=== PATIENT | female | born 1995 | race Caucasian/White ===

== ENCOUNTER 2017-02-11 23:00 | Emergency (ER) | payer OTHER ==
[2017-02-11 23:18] VITALS: BP 130/74; PULSE 99; TEMP 98.4; BMI 23.0
--- NOTE | 2017-02-11 23:33 | PDOC ---
History of Present Illness - General Chief Complaint: Respiratory Stated Complaint: COLD SYMPTOMS Time Seen by Provider: 02/11/17 23:24 History Source: Patient - History of Present Illness Initial Comments: 02/11/17 23:51 21-year-old female with no medical history presents to the emergency department complaining of nasal congestion, rhinorrhea without headache, dizziness, lightheadedness, facial pains, sore throat, difficulty swallowing, cough, chest pain, shortness of breath, neck pain/stiffness, back pains, abdominal pains, flank pains, urinary symptoms, ext numbness or tingling sensation. Patient states she's had these symptoms for the past 2 days and was informed by numerous friends and family members that she might have influenza. Past History - Past Medical History Allergies/Adverse Reactions: Allergies Allergy/AdvReac Type Severity Reaction Status Date / Time No Known Drug Allergies Allergy Verified 02/11/17 23:17 Home Medications: Ambulatory Orders NK [No Known Home Medication] 02/11/17 Asthma: No Cancer: No Cardiac Disorders: No COPD: No Diabetes: No HTN: No Seizures: No Thyroid Disease: No - Suicide/Smoking/Psychosocial Hx Smoking History: Never smoked Have you smoked in the past 12 months: No Hx Alcohol Use: No Drug/Substance Use Hx: No Hx Substance Use Treatment: No Review of Systems - Review of Systems Able to Perform ROS?: Yes Comments:: 02/11/17 23:52 CONSTITUTIONAL: Absent: fever, chills, diaphoresis, generalized weakness, malaise, loss of appetite HEENT: +rhinorrhea, nasal congestion Absent: throat pain, throat swelling, difficulty swallowing, mouth swelling, ear pain, eye pain, visual Changes CARDIOVASCULAR: Absent: chest pain, loss of consciousness, palpitations, irregular heart rate, peripheral edema RESPIRATORY: Absent: cough, shortness of breath, dyspnea with exertion, orthopnea, wheezing, stridor, hemoptysis GASTROINTESTINAL: Absent: abdominal pain, abdominal distension, nausea, vomiting, diarrhea, constipation, melena, hematochezia GENITOURINARY: Absent: dysuria, frequency, urgency, hesitancy, hematuria, flank pain, genital pain MUSCULOSKELETAL: Absent: myalgia, arthralgia, joint swelling SKIN: Absent: rash, itching, pallor HEMATOLOGIC/IMMUNOLOGIC: Absent: easy bleeding, easy bruising, lymphadenopathy, frequent infections ENDOCRINE: Absent: unexplained weight gain, unexplained weight loss, heat intolerance, cold intolerance NEUROLOGIC: Absent: headache, focal weakness or paresthesias, dizziness, unsteady gait, seizure, mental status changes, bladder or bowel incontinence PSYCHIATRIC: Absent: anxiety, depression, suicidal or homicidal ideation, hallucinations. Is the patient limited Divehi proficient: No *Physical Exam - Vital Signs Last Vital Signs Temp Pulse Resp BP Pulse Ox 98.4 F 99 H 18 130/74 99 02/11/17 23:15 02/11/17 23:15 02/11/17 23:15 02/11/17 23:15 02/11/17 23:15 - Physical Exam Comments: 02/11/17 23:52 GENERAL: Well developed, well nourished. Awake and alert. No acute distress. HEENT: Normocephalic, atraumatic. PERRLA, EOMI. No conjunctival pallor. Sclera are non- icteric. Moist mucous membranes. Oropharynx is clear. NECK: Supple. Full ROM. No JVD. Carotid pulses 2+ and symmetric, without bruits. No thyromegaly. No lymphadenopathy. CARDIOVASCULAR: Regular rate and rhythm. No murmurs, rubs, or gallops. Distal pulses are 2+ and symmetric. PULMONARY: No evidence of respiratory distress. Lungs clear to auscultation bilaterally. No wheezing, rales or rhonchi. ABDOMINAL: Soft. Non-tender. Non-distended. No rebound or guarding. No organomegaly. Normoactive bowel sounds. MUSCULOSKELETAL Normal range of motion at all joints. No bony deformities or tenderness. No CVA tenderness. EXTREMITIES: No cyanosis. No clubbing. No edema. No calf tenderness. SKIN: Warm and dry. Normal capillary refill. No rashes. No jaundice. NEUROLOGICAL: Alert, awake, appropriate. Cranial nerves 2-12 intact. No deficits to light touch and temperature in face, upper extremities and lower extremities. No motor deficits in the in face, upper extremities and lower extremities. Normoreflexic in the upper and lower extremities. Normal speech. Toes are down- going bilaterally. Gait is normal without ataxia. PSYCHIATRIC: Cooperative. Good eye contact. Appropriate mood and affect. *DC/Admit/Observation/Transfer Diagnosis at time of Disposition: Viral syndrome - Discharge Dispostion Condition at time of disposition: Stable Admit: No - Referrals - Patient Instructions Printed Discharge Instructions: DI for Viral Syndrome Additional Instructions: Increase fluids Tylenol or Motrin every 6hours as needed for pain/fever Follow up with your physician within 48 hours Return to the ER for severe/persistent/worsening symptoms - Post Discharge Activity
== END 2017-02-12 00:25 | disposition home or self-care (01) ==
LOC: JERFT 23:00
DX: B34.9 Viral infection, unspecified (principal)
CPT/HCPCS: 87804; 99281-25

== ENCOUNTER 2019-05-04 18:06 | Emergency (ER) | payer OTHER ==
[2019-05-04] MEDS ORDERED: IBUPROFEN 600 MG TABLET (FP) PO ONE ×2 (18:32→19:07)
--- NOTE | 2019-05-04 18:32 | PDOC ---
Rapid Medical Evaluation Chief Complaint: Cold Symptoms Time Seen by Provider: 05/04/19 18:30 Medical Evaluation: Allergies Allergy/AdvReac Type Severity Reaction Status Date / Time No Known Drug Allergies Allergy Verified 05/04/19 18:29 05/04/19 18:30 This patient had a brief medical evaluation in triage cc: headache since Saturday HPI: Patient reports fever cough and headache since Saturday Complaining of chills in triage PE: alert and oriented unlabored breathing skin warm to touch Orders: urine hcg This patient will proceed to main ed for further evaluation Discharge Disposition - Diagnosis Flu-like symptoms - Referrals - Patient Instructions - Post Discharge Activity
[2019-05-04 18:40] VITALS: BP 132/89; BMI 25.7
--- NOTE | 2019-05-04 19:21 | PDOC ---
History of Present Illness - General Chief Complaint: Cold Symptoms Stated Complaint: COLD SYMPTOMS Time Seen by Provider: 05/04/19 18:30 History Source: Patient Exam Limitations: No Limitations - History of Present Illness Initial Comments: 05/04/19 19:18 23 female denies past medical history complaining of frontal headache, cough, sore throat, body aches and fever x2 days. Denies nausea, vomiting, diarrhea, chest pain, shortness of breath, abdominal pain, sick contacts or recent travel. ROS: as above PE: GENERAL: well-appearing, NAD HEAD: NCAT EYES: Pupils equal, round and reactive to light, sclera anicteric, conjunctiva clear ENT: Normal bilateral ear canals, normal bilateral TMs, pharynx: Mild erythema, no exudate, uvula midline NECK: supple, lymphadenopathy CHEST: nontender RESP: clear, no w/r/r CARDIO: rrr, no m/g/r ABD: +BS, soft, nontender, non distended BACK: no midline spinal ttp, no CVAT EXTREMITIES: Normal range of motion, no edema NEUROLOGICAL: Normal speech, normal gait SKIN: Warm, Dry Is this a multiple visit Asthma Patient?: No Past History - Past Medical History Allergies/Adverse Reactions: Allergies Allergy/AdvReac Type Severity Reaction Status Date / Time No Known Drug Allergies Allergy Verified 05/04/19 18:29 Home Medications: Ambulatory Orders NK [No Known Home Medication] 02/11/17 Asthma: No Cancer: No Cardiac Disorders: No COPD: No Diabetes: No HTN: No Seizures: No Thyroid Disease: No - Psycho Social/Smoking Cessation Hx Smoking History: Never smoked Have you smoked in the past 12 months: No Information on smoking cessation initiated: No Hx Alcohol Use: No Drug/Substance Use Hx: No Hx Substance Use Treatment: No *Physical Exam - Vital Signs Last Vital Signs Temp Pulse Resp BP Pulse Ox 102.3 F H 137 H 18 132/89 100 05/04/19 18:30 05/04/19 18:30 05/04/19 18:30 05/04/19 18:30 05/04/19 18:30 ED Treatment Course - Medications Given in the ED: ED Medications Discontinued Medications Generic Name Dose Route Start Last Admin Trade Name Freq PRN Reason Stop Dose Admin Ibuprofen 600 mg 05/04/19 18:32 05/04/19 19:10 Motrin - PO 05/04/19 18:33 600 mg ONCE ONE Administration Medical Decision Making - Medical Decision Making 05/04/19 19:20 23-year-old female denies past medical history presents complaining of frontal headache, cough, fever, sore throat, body aches x48 hours. Urine flu swab Rapid strep P.o. ibuprofen Reassess 05/04/19 19:44 Awaiting flu and rapid strep results Recheck temperature Signed out to HOLA Perez Discharge - Discharge Information Problems reviewed: Yes Clinical Impression/Diagnosis: Flu-like symptoms Condition: Stable - Admission No - Follow up/Referral Referrals: Randa Payne MD [Primary Care Provider] - - Patient Discharge Instructions - Post Discharge Activity
[2019-05-04] MEDS ORDERED: DEXAMETHASONE LIQUID 0.5 MG/5 ML PO ONE (20:15)
[2019-05-04] MEDS ORDERED: PENICILLIN G BENZATHINE 1,200,000 UNIT/2 ML PFS IM ONE ×2 (20:15→20:17)
[2019-05-04] MEDS ORDERED: DEXAMETHASONE SOD PHOSPHATE 10 MG/1 ML VIAL ONE (20:16)
--- NOTE | 2019-05-04 20:17 | PDOC ---
*Physical Exam - Vital Signs Last Vital Signs Temp Pulse Resp BP Pulse Ox 102.3 F H 137 H 18 132/89 100 05/04/19 18:30 05/04/19 18:30 05/04/19 18:30 05/04/19 18:30 05/04/19 18:30 - Physical Exam 05/04/19 20:15 No gross sensorimotor deficits ED Treatment Course - Medications Given in the ED: ED Medications Discontinued Medications Generic Name Dose Route Start Last Admin Trade Name Cuong PRN Reason Stop Dose Admin Ibuprofen 600 mg 05/04/19 18:32 05/04/19 19:10 Motrin - PO 05/04/19 18:33 600 mg ONCE ONE Administration Medical Decision Making - Medical Decision Making 05/04/19 20:16 Strep positive did Bicillin and Decadron I have reviewed the pathophysiology with the patient. They are in agreement with the treatment plan all questions were answered to their satisfaction. Understanding for follow-up without fail was also conveyed to the patient. Again they are in agreement. Discharge - Discharge Information Problems reviewed: Yes Clinical Impression/Diagnosis: Strep pharyngitis Clinical Impression/Diagnosis: (Ruled Out): Flu-like symptoms Condition: Stable Disposition: HOME - Admission No - Follow up/Referral Referrals: Randa Payne MD [Primary Care Provider] - - Patient Discharge Instructions Additional Instructions: You were given a one-time injection today of penicillin which will treat strep throat. You were given also a long-acting steroid. You should not require any anti-inflammatories from this point forward you may take Tylenol for pain and perform warm salt water gargles 5-6 times a day. Return to the emergency room for worsening symptoms and without fail follow-up with your primary care physician in 1 to 2 days for further evaluation and treatment options. - Post Discharge Activity Work/Back to School Note: Back to Work
[2019-05-04 20:24] VITALS: PULSE 100; TEMP 101.2
== END 2019-05-04 20:47 | disposition home or self-care (01) ==
LOC: JERFT 18:06 → JER 18:06 → JERFT 20:47
DX: J02.0 Streptococcal pharyngitis (principal); B95.0 Streptococcus, group A, as the cause of diseases classified elsewhere
CPT/HCPCS: 87804; 87880; 96372; 99284-25

== ENCOUNTER 2019-08-27 15:48 | Emergency (ER) | payer OTHER ==
[2019-08-27 15:52] VITALS: BP 111/66; PULSE 106; TEMP 96.6; BMI 26.5
--- NOTE | 2019-08-27 15:52 | PDOC ---
Rapid Medical Evaluation Time Seen by Provider: 08/27/19 15:49 Medical Evaluation: Allergies Allergy/AdvReac Type Severity Reaction Status Date / Time No Known Drug Allergies Allergy Verified 05/04/19 18:29 08/27/19 15:50 I performed a brief in-person evaluation of this patient. Pt is a 23 y/o female with R ear pain for the last 2 days. She denies any fevers or drainage. She took Advil for the pain which helped a little bit. She denies any other complaints. She denies any past medical history or allergies to medications. Pertinent physical exam findings: speaking in full sentences, no drainage noted from R ear I have ordered the following: none Patient to proceed to ED for further evaluation. Discharge Disposition - Diagnosis Right ear pain - Referrals - Patient Instructions - Post Discharge Activity
[2019-08-27] MEDS ORDERED: KETOROLAC TROMETHAMINE 30 MG/1 ML VIAL IM ONE (16:59)
[2019-08-27] MEDS ORDERED: KETOROLAC TROMETHAMINE 30 MG/1 ML VIAL ONE (17:00)
--- NOTE | 2019-08-27 17:05 | PDOC ---
History of Present Illness - General Chief Complaint: Ear Problem Stated Complaint: RT EAR PAIN Time Seen by Provider: 08/27/19 15:49 History Source: Patient Exam Limitations: Clinical Condition - History of Present Illness Initial Comments: 08/27/19 17:01 Patient with no significant past medical history present with complaint of 2 days history of right ear pain with increased pain with chewing to right ear. Patient reported taking Aleve this morning with minimal improvement. Denies fever, chills, dizziness, blurry vision. Denies any other symptoms. Is this a multiple visit Asthma Patient?: No Past History - Medical History Allergies/Adverse Reactions: Allergies Allergy/AdvReac Type Severity Reaction Status Date / Time No Known Drug Allergies Allergy Verified 08/27/19 15:52 Home Medications: Ambulatory Orders Naproxen 500 mg PO BID PRN #20 tablet 08/27/19 Asthma: No Cancer: No Cardiac Disorders: No COPD: No Diabetes: No HTN: No Seizures: No Thyroid Disease: No - Psycho-Social/Smoking History Smoking History: Never smoked Have you smoked in the past 12 months: No - Substance Abuse Hx (Audit-C & DAST Scrn) How often the patient has a drink containing alcohol: Never Score: In Men: 4 or > Positive; In Women: 3 or > Positive: 0 Screen Result (Pos requires Nsg. Audit-10AR): Negative Review of Systems - Review of Systems Able to Perform ROS?: Yes Is the patient limited Mosotho proficient: No Constitutional: No: Chills, Fever, Malaise HEENTM: Yes: Symptoms Reported, See HPI, Ear Pain (Right ear pain). No: Eye Pain, Blurred Vision, Tearing, Recent change in vision, Double Vision, Cataracts, Ocular Prothesis, Ear Discharge, Nose Pain, Nose Congestion, Tinnitus, Nose Bleeding, Hearing Loss, Throat Pain, Throat Swelling, Mouth Pain, Dental Problems, Difficulty Swallowing, Mouth Swelling, Other Respiratory: No: Symptoms reported, See HPI, Cough, Orthopnea, Shortness of Breath, SOB with Exertion, SOB at Rest, Stridor, Wheezing, Productive cough, Hemoptysis, Other Cardiac (ROS): No: Symptoms Reported ABD/GI: No: Symptoms Reported : No: Symptoms Reported Musculoskeletal: No: Symptoms Reported Integumentary: No: Symptoms Reported Neurological: No: Numbness, Weakness, Dizziness All Other Systems: Reviewed and Negative *Physical Exam - Vital Signs Last Vital Signs Temp Pulse Resp BP Pulse Ox 96.6 F L 106 H 18 111/66 99 08/27/19 15:50 08/27/19 15:50 08/27/19 15:50 08/27/19 15:50 08/27/19 15:50 - Physical Exam 08/27/19 17:06 GENERAL: Well developed, well nourished. Awake and alert. No acute distress. HEENT: Moderate tenderness to right TMJ with increased tenderness over TMJ with occlusion of mouth against resistance. Tympanic membrane normal bilateral. No erythema to ear canals bilateral. Normocephalic, atraumatic. PERRLA, EOMI. No conjunctival pallor. Sclera are non-icteric. Moist mucous membranes. Oropharynx is clear. NECK: Supple. Full ROM. CARDIOVASCULAR: Regular rate and rhythm. No murmurs, rubs, or gallops. Distal pulses are 2+ and symmetric. PULMONARY: No evidence of respiratory distress. Lungs clear to auscultation bilaterally. No wheezing, rales or rhonchi. MUSCULOSKELETAL Normal range of motion at all joints. SKIN: Warm and dry. Normal capillary refill. No rashes. No jaundice. NEUROLOGICAL: Alert, awake, appropriate. Gait is normal without ataxia. PSYCHIATRIC: Cooperative. Good eye contact. Appropriate mood General Appearance: Yes: Nourished, Appropriately Dressed. No: Apparent Distress Medical Decision Making - Medical Decision Making 08/27/19 17:03 Patient with no significant past medical history present with complaint of 2 days history of right ear pain with increased pain with chewing to right ear. Patient reported taking Aleve this morning with minimal improvement. Denies fever, chills, dizziness, blurry vision. Denies any other symptoms. Exam significant for moderate tenderness to right TMJ which increased pain with occlusion of mild against resistance. Normal ear exam. Tympanic membrane normal bilateral. Patient afebrile. Patient symptoms likely right TMJ arthralgia. Patient given Toradol 30 mg IM for pain. Patient stable for discharge on naproxen twice daily PRN for pain with advised to do hot compresses to TMJ area with oral surgery follow-up Discharge - Discharge Information Problems reviewed: Yes Clinical Impression/Diagnosis: Right ear pain, Right temporomandibular joint disorder, unspecified Condition: Stable Disposition: HOME - Admission No - Additional Discharge Information Prescriptions: Naproxen 500 mg PO BID PRN #20 tablet PRN Reason: jaw pain - Follow up/Referral Referrals: Lucio Kelly MD [Non Staff, Medical] - Noel Jin [Non Staff, Medical] - - Patient Discharge Instructions Patient Printed Discharge Instructions: DI for Temporomandibular Disorder Additional Instructions: Your ear pain is likely from pain from your jaw which is called TMJ which is an inflammation of the joints of your jawline. Take prescribed medication as prescribed for pain. Apply hot compresses to jaw area as needed for pain. Follow-up referred oral surgeon as needed if symptoms persist for more than 5 days - Post Discharge Activity
== END 2019-08-27 17:20 | disposition home or self-care (01) ==
LOC: JERFT 15:48
PROC: 3E023GC Introduction of Other Therapeutic Substance into Muscle, Percutaneous Approach (ICD-10-PCS; principal; 2019-08-27)
DX: M26.601 Right temporomandibular joint disorder, unspecified (principal); H92.01 Otalgia, right ear
CPT/HCPCS: 99284-25

== ENCOUNTER 2019-11-20 15:17 | Emergency (ER) | payer OTHER ==
[2019-11-20 15:40] VITALS: BP 124/67; PULSE 109; TEMP 98.5; BMI 24.2
--- NOTE | 2019-11-20 16:12 | PDOC ---
History of Present Illness - General Chief Complaint: Cold Symptoms Stated Complaint: HEADACHE/COLD SYMPTOMS Time Seen by Provider: 11/20/19 15:43 History Source: Patient - History of Present Illness Timing/Duration: reports: 1 week Past History - Medical History Allergies/Adverse Reactions: Allergies Allergy/AdvReac Type Severity Reaction Status Date / Time No Known Drug Allergies Allergy Verified 11/20/19 15:35 Home Medications: Ambulatory Orders Naproxen 500 mg PO BID PRN #20 tablet 08/27/19 Acetaminophen [Tylenol -] 500 mg PO Q6H #30 tablet 11/20/19 Asthma: No Cancer: No Cardiac Disorders: No COPD: No Diabetes: No HTN: No Seizures: No Thyroid Disease: No - Reproductive History Is Patient Now?: No - Psycho-Social/Smoking History Smoking History: Never smoked Have you smoked in the past 12 months: No Information on smoking cessation initiated: No - Substance Abuse Hx (Audit-C & DAST Scrn) How often the patient has a drink containing alcohol: Never Score: In Men: 4 or > Positive; In Women: 3 or > Positive: 0 Screen Result (Pos requires Nsg. Audit-10AR): Negative In the last yr the pt used illegal drug/Rx for NonMed reason: No Score: Yes response is considered Positive: 0 Screen Result (Positive result requires Nsg. DAST-10): Negative Review of Systems - Review of Systems Constitutional: No: Chills, Fever, Unintentional Wgt. Loss HEENTM: No: Blurred Vision ABD/GI: No: Nausea, Vomiting Neurological: Yes: Headache. No: Numbness, Tingling, Weakness, Dizziness *Physical Exam - Vital Signs Last Vital Signs Temp Pulse Resp BP Pulse Ox 98.5 F 109 H 15 124/67 100 11/20/19 15:35 11/20/19 15:35 11/20/19 15:35 11/20/19 15:35 11/20/19 15:35 - Physical Exam General Appearance: Yes: Appropriately Dressed. No: Apparent Distress HEENT: positive: Normal Voice Neck: positive: Supple Respiratory/Chest: negative: Respiratory Distress Integumentary: positive: Dry, Warm Neurologic: positive: head waiter/waitress II-XII NML intact, Fully Oriented, Alert, Normal Mood/Affect, Motor Strength 5/5 Medical Decision Making - Medical Decision Making 11/20/19 16:04 24 yo F, implanon in place, endorses h/o chronic headaches, presents with her usual headache x1 week on and off. Headache located to bi-congregation region, achy, 6 out of 10 with no worsening factors. Taking [id number] NSAIDs with some relief. No dizziness, blurred vision, nausea or vomiting. Has never seek medical evaluation for same in the past and unclear as to why patient presented today. see exam Acute on chronic AN Since improved w/ advil AN currently 04/13 in ED No red flags at this time Dc w/ neuro f/u for further eval Discharge - Discharge Information Problems reviewed: Yes Clinical Impression/Diagnosis: Headache Qualifiers: Headache type: unspecified Headache chronicity pattern: acute headache Intracta bility: not intractable Qualified Code(s): R51 - Headache Condition: Good Disposition: HOME - Additional Discharge Information Prescriptions: Acetaminophen [Tylenol -] 500 mg PO Q6H #30 tablet - Follow up/Referral Referrals: Vishnu Lee MD [Staff Physician] - - Patient Discharge Instructions Patient Printed Discharge Instructions: DI for Headache Additional Instructions: Take tylenol for pain as directed Follow up with Dr Lee or neurology for further evaluation of your headaches - Post Discharge Activity
== END 2019-11-20 16:13 | disposition home or self-care (01) ==
LOC: JER 15:17
DX: R51 Headache (principal)
CPT/HCPCS: 99283-25

== ENCOUNTER 2020-02-04 08:39 | Emergency (ER) | payer OTHER ==
[2020-02-04 08:58] VITALS: BP 114/79; PULSE 103; TEMP 97.8; BMI 24.2
[2020-02-04] MEDS ORDERED: FAMOTIDINE 20 MG/50 ML IVPB 20 MG/50 ML MG IVPB ONE ×2 (09:13→09:23)
[2020-02-04] MEDS ORDERED: ACETAMINOPHEN 1000 MG/100 ML VIAL (NON FORMULARY) IVPB ONE (09:13)
[2020-02-04] MEDS ORDERED: METOCLOPRAMIDE HCL INJECTION 10 MG/2 ML VIAL IVPB ONE (09:13)
[2020-02-04] MEDS ORDERED: SODIUM CHLORIDE 1,000 ML IV STA (09:13)
[2020-02-04] MEDS ORDERED: METOCLOPRAMIDE HCL INJECTION 10 MG/2 ML VIAL ONE (09:22)
[2020-02-04] MEDS ORDERED: ACETAMINOPHEN INJECTION 100 ML IVPB ONE (09:22)
[2020-02-04 10:11] LABS: BASO % 0.9 % (0-2.0); HEMATOCRIT 37.8 % (32.4-45.2); HEMOGLOBIN 12.4 GM/dL (10.7-15.3); LYMPH % 23.7 % (8-40); MCH 25.8 pg (25.7-33.7); MCHC 32.7 g/dl (32.0-36.0); MEAN CELL VOLUME 78.9 fl (80-96); MEAN PLT VOLUME 9.1 fl (7.5-11.1); MONO % 6.4 % (3.8-10.2); PLATELET COUNT 263 K/MM3 (134-434); RBC 4.79 M/mm3 (3.60-5.2); RDW 14.7 % (11.6-15.6); WHITE BLOOD COUNT 6.7 K/mm3 (4.0-10.0)
[2020-02-04 10:14] LABS: HCG,QUALITATIVE URINE Negative
[2020-02-04 10:22] LABS: EPI CELLS 7 /uL (0-25.1); HYALINE CASTS 0 /uL (0-3.1); URINE APPEARANCE CLOUDY; URINE BACTERIA 120 /uL (0-1359); URINE BILIRUBIN NEGATIVE (NEGATIVE); URINE COLOR YELLOW; URINE GLUCOSE (UA) NEGATIVE (NEGATIVE); URINE KETONE NEGATIVE (NEGATIVE); URINE LEUK ESTERASE NEGATIVE (NEGATIVE); URINE NITRITE NEGATIVE (NEGATIVE); URINE PROTEIN NEGATIVE (NEGATIVE); URINE RBC 14 /uL (0-23.9); URINE WBC 3 /uL (0-25.8)
[2020-02-04 10:35] LABS: ALBUMIN 3.7 g/dl (3.4-5.0)
[2020-02-04 10:38] LABS: CREATININE 0.6 mg/dL (0.55-1.3)
[2020-02-04 10:39] LABS: BILIRUBIN,TOTAL 0.4 mg/dL (0.2-1); TOT PROT 7.7 g/dl (6.4-8.2)
== END 2020-02-04 11:26 | disposition home or self-care (01) ==
LOC: JER 08:39
PROC: 3E0333Z Introduction of Anti-inflammatory into Peripheral Vein, Percutaneous Approach (ICD-10-PCS; principal; 2020-02-04)
PROC: 3E033GC Introduction of Other Therapeutic Substance into Peripheral Vein, Percutaneous Approach (ICD-10-PCS; 2020-02-04)
PROC: 3E033GC Introduction of Other Therapeutic Substance into Peripheral Vein, Percutaneous Approach (ICD-10-PCS; 2020-02-04)
PROC: 3E0337Z Introduction of Electrolytic and Water Balance Substance into Peripheral Vein, Percutaneous Approach (ICD-10-PCS; 2020-02-04)
DX: R10.31 Right lower quadrant pain (principal)
CPT/HCPCS: 36415; 76705-TC; 80053; 81003; 83690; 84703; 85025; 87086; 99284-25; J0131

== ENCOUNTER 2021-02-27 13:20 | Emergency (ER) | payer OTHER ==
[2021-02-27 13:32] VITALS: BP 105/69; PULSE 103; TEMP 98.6; BMI 25.7
[2021-02-28 14:07] LABS: SARS-CoV-2 NAA Detected (Not Detected)
== END 2021-02-27 15:31 | disposition home or self-care (01) ==
LOC: JER 13:20
DX: U07.1 COVID-19 (principal); R05.1 Acute cough; J02.9 Acute pharyngitis, unspecified
CPT/HCPCS: 87804; 87807; 99283-25; C9803; U0003; U0005